=== PATIENT | female | born 1990 | race African-American/Black ===

== ENCOUNTER 2017-06-11 19:58 | Emergency (ER) | payer MEDICAID ==
[~2017-06-11] VITALS: Ht 177.8 cm; Wt 54.0 kg
[~2017-06-11 19:58] MED LIST: DOCU-138 PO; FERR-43 PO; IOHEXOL-300 100 ML BOTTLE ONE; OMEP20CA10 PO; SODIUM CHLORIDE 0.9% 10ML VIAL ONE
[2017-06-11] MEDS ORDERED: HYDROCODONE/ACETAMINOPHEN 5/325MG TABLET PO ONE (22:45)
[2017-06-11 22:56] LABS: BASOPHILS % 0.2 % (0.0-2.0); EOSINOPHILS % 0.1 % (0.0-5.0); HEMATOCRIT. 21.9 % (36.0-48.0); LYMPHOCYTES % 17.5 % (20.0-50.0); MEAN CORPUSCULAR VOLUME 69.8 fL (81.0-99.0); MEAN PLATELET VOLUME 6.9 fl (7.4-10.4); MONOCYTES % 7.1 % (2.0-8.0); NEUTROPHILS % 75.1 % (40.0-76.0); PLATELET 224 x1000/uL (130-400); RED BLOOD CELL COUNT 3.14 mill/uL (4.2-5.4); RED CELL DISTRIBUTION WIDTH 18.5 % (11.6-14.6)
[2017-06-11 23:08] LABS: HEMOGLOBIN. 6.9 g/dL (12.0-16.0)
[2017-06-11 23:16] LABS: HCG SCREEN NEGATIVE
[2017-06-11 23:21] LABS: PLATELET ESTIMATE NORMAL
[2017-06-11] MEDS ORDERED: SODIUM CHLORIDE 0.9% 1,000 ML IV ONE (23:53)
[2017-06-12 00:32] LABS: CHLORIDE 108 mEq/L (98-107)
[2017-06-12 00:41] LABS: CARBON DIOXIDE 23 mEq/L (21-32); INR 1.1; PROTHROMBIN TIME 11.4 sec
[2017-06-12 04:09] VITALS: BP 103/61
== END 2017-06-12 04:27 | disposition home or self-care (01) ==
LOC: ER 20:21
DX: S09.90XA Unspecified injury of head, initial encounter (principal); D64.9 Anemia, unspecified; M54.2 Cervicalgia; Y04.0XXA Assault by unarmed brawl or fight, initial encounter; Y93.89 Activity, other specified; Y92.89 Other specified places as the place of occurrence of the external cause; Y99.8 Other external cause status
CPT/HCPCS: 36415; 70450; 70486; 72125; 74177; 80053; 84703; 85025; 85610; 86850; 86900; 86901; 86920; 99285; A4216; Q9967; J7030

== ENCOUNTER 2018-02-05 23:08 | Emergency (ER) | payer MEDICAID ==
[~2018-02-05] VITALS: Ht 177.8 cm; Wt 65.0 kg
[~2018-02-05 23:08] MED LIST changes: -IOHEXOL-300 100 ML BOTTLE ONE; -SODIUM CHLORIDE 0.9% 10ML VIAL ONE
[2018-02-05 23:12] VITALS: BP 112/60
== END 2018-02-06 08:57 | disposition left against medical advice (07) ==
LOC: ER 23:08
DX: R10.9 Unspecified abdominal pain (principal); Z53.21 Procedure and treatment not carried out due to patient leaving prior to being seen by health care provider

== ENCOUNTER 2019-02-21 11:31 | Emergency (ER) | payer SELFPAY ==
[~2019-02-21] VITALS: Ht 175.3 cm; Wt 62.1 kg
[2019-02-21] MEDS ORDERED: SODIUM CHLORIDE 0.9% 1,000 ML IV ONE (12:48)
[2019-02-21] MEDS ORDERED: ONDANSETRON HCL 4MG/2ML INJ IV STA (12:48)
[2019-02-21 13:26] LABS: CHLORIDE 109 mEq/L (98-107)
[2019-02-21 13:27] LABS: INR 1.1
[2019-02-21 13:33] LABS: BASOPHILS % 0.6 % (0.0-2.0); EOSINOPHILS % 5.2 % (0.0-5.0); HEMATOCRIT. 27.1 % (36.0-48.0); HEMOGLOBIN. 8.3 g/dL (12.0-16.0); LYMPHOCYTES % 20.2 % (20.0-50.0); MEAN CORPUSCULAR HEMOGLOBIN 20.3 pg (28.0-32.0); MEAN CORPUSCULAR VOLUME 65.9 fL (81.0-99.0); MONOCYTES % 11.3 % (2.0-8.0); NEUTROPHILS % 62.7 % (40.0-76.0); PLATELET 218 x1000/uL (130-400); RED CELL DISTRIBUTION WIDTH 18.9 % (11.6-14.6)
[2019-02-21 13:50] LABS: PLATELET ESTIMATE NORMAL
[2019-02-21] MEDS ORDERED: KETOROLAC 15MG/ML VIAL IV ONE (14:00)
[2019-02-21 19:50] LABS: CLARITY URINE CLOUDY (CLEAR); COLOR URINE YELLOW (YELLOW); KETONES URINE NEGATIVE (NEGATIVE); LEUKOCYTE ESTERASE URINE 1+ (NEGATIVE); NITRITE URINE POSITIVE (NEGATIVE); OCCULT BLOOD URINE TRACE (NEGATIVE); PROTEIN URINE NEGATIVE (NEGATIVE); SPECIFIC GRAVITY URINE 1.014 (1.005-1.030); UROBILINOGEN URINE 0.2 E.U./dL (0.2-1.0)
[2019-02-21 21:01] VITALS: BP 98/56
== END 2019-02-21 21:02 | disposition home or self-care (01) ==
LOC: ER 11:31
DX: R10.33 Periumbilical pain (principal); R11.2 Nausea with vomiting, unspecified; J45.909 Unspecified asthma, uncomplicated; Z79.899 Other long term (current) drug therapy; Z98.890 Other specified postprocedural states
CPT/HCPCS: 36415; 80053; 81003; 81025; 85025; 85610; 86850; 86900; 86901; 96361; 96374; 96375; 99283; J1885; J2405; J7030; Z7610

== ENCOUNTER 2019-04-26 21:27 | Emergency (ER) | payer MEDICAID ==
[~2019-04-26] VITALS: Ht 175.3 cm; Wt 63.0 kg
[~2019-04-26 21:27] MED LIST changes: -OMEP20CA10 PO; +OMEP20CA5 PO
[2019-04-26] MEDS ORDERED: KETOROLAC 60MG/2ML VIAL IM ONE (23:00)
[2019-04-27 01:03] VITALS: BP 117/56
== END 2019-04-27 01:07 | disposition home or self-care (01) ==
LOC: ER 21:27
DX: S43.402A Unspecified sprain of left shoulder joint, initial encounter (principal); J45.909 Unspecified asthma, uncomplicated; Z98.890 Other specified postprocedural states; Z79.899 Other long term (current) drug therapy; Y08.89XA Assault by other specified means, initial encounter; Y93.89 Activity, other specified; Y92.89 Other specified places as the place of occurrence of the external cause; Y99.8 Other external cause status
CPT/HCPCS: 73030; 81025; 96372; 99283; J1885

== ENCOUNTER 2019-07-22 05:11 | Emergency (ER) | payer MEDICAID ==
[~2019-07-22] VITALS: Ht 175.3 cm; Wt 65.0 kg
[2019-07-22] MEDS ORDERED: KETOROLAC 30MG/ML VIAL IV ONE (07:00)
[2019-07-22] MEDS ORDERED: TRAMADOL 50MG TABLET PO ONE (07:45)
[2019-07-22 09:30] VITALS: BP 101/62
== END 2019-07-22 09:46 | disposition home or self-care (01) ==
LOC: ER 05:11
DX: G89.29 Other chronic pain (principal); M54.5 Low back pain; Z87.828 Personal history of other (healed) physical injury and trauma
CPT/HCPCS: 81025; 96374; 99283; J1885

== ENCOUNTER 2020-02-11 23:31 | Emergency (ER) | payer MEDICAID ==
[~2020-02-11] VITALS: Ht 175.3 cm; Wt 62.0 kg
[~2020-02-11 23:31] MED LIST changes: +OMEP20CA14 PO; -OMEP20CA5 PO
[2020-02-12] MEDS ORDERED: LIDOCAINE 5% PATCH TOP SCH (03:30)
[2020-02-12] MEDS ORDERED: CYCLOBENZAPRINE 10MG TABLET PO ONE (03:30)
[2020-02-12] MEDS ORDERED: KETOROLAC 60MG/2ML VIAL IM ONE (03:30)
[2020-02-12 04:38] VITALS: BP 107/69
== END 2020-02-12 04:40 | disposition home or self-care (01) ==
LOC: ER 23:31
DX: M62.830 Muscle spasm of back (principal); M62.838 Other muscle spasm
CPT/HCPCS: 96372; 99283; J1885